=== PATIENT | female | born 1990 | race Caucasian/White ===

== ENCOUNTER 2016-08-28 09:59 | Emergency (ER) | payer OTHER ==
[~2016-08-28] VITALS: Ht 154.9 cm; Wt 59.0 kg
[~2016-08-28 09:59] MED LIST: PHENERGAN25 M1 PO
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
[2016-08-28 10:55] LABS: ABSOLUTE BASOPHIL COUNT 0 /CUMM (0.0-0.2); ABSOLUTE EOSINOPHIL COUNT 0 /CUMM (0.0-0.7); ABSOLUTE GRANULOCYTE CT 7.4 /CUMM (1.4-6.5); ABSOLUTE LYMPH COUNT 1.5 /CUMM (1.2-3.4); ABSOLUTE MONOCYTE COUNT 0.4 /CUMM (0.10-0.60); BASOPHIL % 0.3 % (0.0-2.0); EOSINOPHIL % 0 % (0-5); GRANULOCYTE % 79.5 % (42.2-75.2); HEMATOCRIT 45.2 % (37-47); MEAN CORPUSCULAR HGB 30.7 PG (27.0-31.0); MEAN CORPUSCULAR HGB CONC 34.4 G/DL (33.0-37.0); MEAN CORPUSCULAR VOLUME 89.3 FL (81.0-99.0); MEAN PLATELET VOLUME 7.3 FL (7.4-10.4); PLATELET COUNT 407 /CUMM (130-400); RBC DISTRIBUTION WIDTH 13.4 % (11.5-14.5); RED BLOOD CELL CT 5.06 /CUMM (4.20-5.40); WHITE BLOOD CELL COUNT 9.3 /CUMM (4.8-10.8)
[2016-08-28 12:55] VITALS: BP 122/75
[2016-08-28] MEDS ORDERED: ZOFRAN ODT4 M1 SL (13:06)
== END 2016-08-28 13:13 ==
LOC: ERH 09:59
PROVIDERS: Physician Assistant
DX: R10.84 Generalized abdominal pain (principal); R11.2 Nausea with vomiting, unspecified; R19.7 Diarrhea, unspecified
CPT/HCPCS: 81001; 81025; 87071; 87086; 96374; 96375; J1885; J2405

== ENCOUNTER 2017-07-03 12:44 | Emergency (ER) | payer OTHER ==
[~2017-07-03] VITALS: Ht 154.9 cm; Wt 59.0 kg
[~2017-07-03 12:44] MED LIST changes: +ZOFRAN ODT4 M1 SL
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
[2017-07-03 15:16] VITALS: BP 126/88
== END 2017-07-03 15:16 ==
LOC: ERH 12:44
DX: S80.01XA Contusion of right knee, initial encounter (principal); V44.5XXA Car driver injured in collision with heavy transport vehicle or bus in traffic accident, initial encounter; Y92.9 Unspecified place or not applicable
CPT/HCPCS: 73562-RT